=== PATIENT | female | born 1945 | race Caucasian/White ===

== ENCOUNTER → 2017-02-21 | Outpatient (CLI) | payer MEDICARE ==
[2017-02-21 19:18] LABS: THYROID STIMULATING HORMONE 4.3 uIU/ml (0.34-5.60)
[2017-02-21 19:22] LABS: FREE T3 2.9 pg/mL (2.5-3.9)
[2017-02-21 19:24] LABS: FREE THYROXIN (T4) 0.89 ng/dL (0.58-1.64)
== END | disposition home or self-care (01) ==
LOC: CLAB 18:08
PROVIDERS: Internal Medicine Endocrinology, Diabetes & Metabolism
DX: E05.90 Thyrotoxicosis, unspecified without thyrotoxic crisis or storm (principal); E11.9 Type 2 diabetes mellitus without complications
CPT/HCPCS: 36415; 84439; 84443; 84481